=== PATIENT | female | born 1985 | race African-American/Black ===

== ENCOUNTER 2019-01-05 02:46 | Emergency (ER) | payer MEDICAID ==
[~2019-01-05] VITALS: Ht 157.5 cm; Wt 51.3 kg
[2019-01-05 02:48] VITALS: Ht 157.5 cm; Wt 51.3 kg
[2019-01-05 05:01] LABS: BASOPHIL % 0.4 % (0-2); PLATELET COUNT 266 x10^3mcL (130-400); RED CELL DISTRIBUTION WIDTH 12.9 % (11.5-14.5)
[2019-01-05 06:06] VITALS: BP 132/84
== END 2019-01-05 06:06 | disposition home or self-care (01) ==
LOC: ED 02:46
PROVIDERS: Emergency Medicine
DX: O20.0 Threatened abortion (principal); J45.909 Unspecified asthma, uncomplicated
CPT/HCPCS: 36415; Q0092